=== PATIENT | female | born 1985 | race Caucasian/White ===

== ENCOUNTER 2019-07-01 06:30 | Inpatient (IN) | payer BC, SELFPAY ==
[2019-07-01] VITALS (85 sets, daily range): BP systolic 80–138; BP diastolic 43–110; PULSE 60–158; RESP 16; TEMP 36.3–36.9; O2SAT 81–100; BMI 27.3
--- NOTE | 2019-07-01 07:12 | LDADM ---
This patient, Spring Carbone, was admitted to Labor/Delivery/Recovery 104 on 07/01/19 at 06:30. Plans for labor, pain management and were discussed with patient. Patient/family oriented to hospital policies and general routines including ID bracelet, bed and alarms, visiting hours, pain management, procedures, bathroom and other care routines, personal items, smoking policy, room service/diet and guest tray routines, infant security routines, and visiting hours. Patient/Family are encouraged to report perceived risks to care and to ask questions if they do not understand what they are told or what they should do. See OBIX for further documentation.
[2019-07-01 07:13] LABS: Basophils Percent Auto 0.2 % (0.2-1.2); Eosinophils Absolute Auto 0.1 K/mm3 (0-0.3); Eosinophils Percent Auto 0.4 % (0-4.4); Hemoglobin 13.2 g/dL (12.0-15.0); Immature Granulocyte Absolute 0.07 K/mm3 (0.00-0.031); Immature Granulocyte Percent A 0.6 % (0-0.5); Lymphocytes Percent Auto 24.4 % (18.3-44.2); Mean Corpuscular HGB Conc 33.8 g/dl (32-36); Mean Corpuscular Hemoglobin 30.3 pg (26-34); Mean Corpuscular Volume 89.7 fl (80-100); Mean Platelet Volume 10.5 fl (7.4-10.4); Monocytes Absolute Auto 0.8 K/mm3 (0.1-0.6); Monocytes Percent Auto 6.1 % (2.6-8.5); Neutrophils Absolute Auto 8.4 K/mm3 (1.3-6.7); Neutrophils Percent Auto 68.3 % (45.5-73.1); Platelet Count Result 196 k/mm3 (150-375); Red Blood Count 4.35 M/mm3 (4.2-5.4); Red Cell Distribution Width 14.5 % (11.5-14.5); White Blood Count 12.3 K/mm3 (4.5-10.0)
--- NOTE | 2019-07-01 08:41 | WPDOBADMIT ---
Obstetrics - Admit Note Admission Note: 34y/o @ 41w4d here for induction of labor. Pt would like to start with AROM only. VSS and afebrile Contractions occasional FHR category 1 Cervix 3/50/-2 AROM small amount of clear odorless fluid Anticipate record reviewed. No pertinent additions to the history and/or any subsequent changes in the physical findings that are not consistent with the expected course of the were found. Additions to the history and/or subsequent changes in the physical findings follow. None.
[2019-07-01] MEDS: LACTATED RINGERS 1,000 ML 125 ML IV CONT ×2 (13:56→14:50)
--- NOTE | 2019-07-01 14:44 | WPDANESEPP ---
Anes - Eval Pre Procedure Procedure: labor pain management Date/Time: 07/01/19 14:44 Surgeon: Dr. Romero Preop Diagnosis: Pain during labor Pre Op Diagnosis: Induction of Labor Patient Data Age: 34 Gender: F Height: 5 ft 6 in Weight: 77 kg Last Vital Signs Temp 97.3 F L 07/01/19 13:23 Pulse 63 07/01/19 14:31 BP 111/69 07/01/19 14:31 Allergies Allergy/AdvReac Type Severity Reaction Status Date / Time No Known Allergies Allergy Verified 05/29/19 12:25 Home Medications Medication Instructions Recorded Confirmed Type PNV cmb#95-ferrous fumarate-FA 1 tablet PO DAILY 05/29/19 07/01/19 History [] Laboratory Tests 07/01/19 07/01/19 07/01/19 06:57 06:57 06:57 WBC 12.3 K/mm3 H K/mm3 (4.5-10.0) RBC 4.35 M/mm3 M/mm3 (4.2-5.4) Hgb 13.2 g/dL g/dL (12.0-15.0) Hct 39.0 % % (37.0-47.0) MCV 89.7 fl fl (80-100) MCH 30.3 pg pg (26-34) MCHC 33.8 g/dl g/dl (32-36) RDW 14.5 % % (11.5-14.5) Plt Count 196 k/mm3 k/mm3 (150-375) MPV 10.5 fl H fl (7.4-10.4) Immature Gran % (Auto) 0.6 % H % (0-0.5) Neut % (Auto) 68.3 % % (45.5-73.1) Lymph % (Auto) 24.4 % % (18.3-44.2) [place] % (Auto) 6.1 % % (2.6-8.5) Eos % (Auto) 0.4 % % (0-4.4) Baso % (Auto) 0.2 % % (0.2-1.2) Lymph # (Auto) 3.00 K/mm3 K/mm3 (0.9-3.2) [place] # (Auto) 0.8 K/mm3 H K/mm3 (0.1-0.6) Eos # (Auto) 0.1 K/mm3 K/mm3 (0-0.3) Baso # (Auto) 0.0 K/mm3 K/mm3 (0.0-0.1) Abs Immat Gran (auto) 0.07 K/mm3 H K/mm3 (0.00-0.031) Absolute Neuts (auto) 8.4 K/mm3 H K/mm3 (1.3-6.7) Absolute Nucleated RBC 0.0 K/mm3 K/mm3 (0.0-0.012) Nucleated RBC % 0.0 % % (0.0-0.2) RPR Pending Blood Type O Positive Antibody Screen Negative Patient hx anesthesia problems: none Family hx anesthesia problems: none PMFSH Past Medical History Medical History (Updated 07/01/19 @ 14:46 by Deedee Bermudez CRNA) Migraines Surgical History Surgical History (Updated 07/01/19 @ 14:46 by Deedee Bermudez CRNA) History of appendectomy Hx of tonsillectomy Family History Family History (Updated 05/29/19 @ 12:37 by Jillian Nino RN) Other No pertinent family history Social History Social History Smoking status: Never smoker Substance use: never Gender identity (if verbalized by the patient): Female Spiritual care concerns: No Exam Day of Procedure 07/01/19 14:44
--- NOTE | 2019-07-01 16:49 | PM.OBPRVD ---
OB - Delivery Note Procedure Delivery date: 07/01/19 Intrapartal events: None Induction method: AROM Delivery monitor: external FHT and external uterine Route of delivery: Episiotomy description: None Laceration description: None Estimated blood loss (mL): 82 Anesthesia type: Epidural [place] Baby Date of : 07/01/19 Time of : 16:35 Weeks of gestation at delivery: 41 gender: Male Weight (pounds): 8 Weight (ounces): 12 presentation: vertex position: Left Occiput Anterior Placenta delivery description: Spontaneous cord vessel description: 3 Vessels score one minute: 8 score five minutes: 9 Narrative: Mother and baby in stable condition. Cord gasses collected and handed off to nursery staff. Arterial .5cc Venous1.5cc.
[2019-07-01] MEDS: OXYTOCIN 30 UNITS/NS 500 ML 30 UNITS/500 ML BAG 125 UNITS IV CONT (17:28)
[2019-07-01] MEDS: WITCH HAZEL 40 PADS 1 PAD TOPICAL (18:20)
[2019-07-01] MEDS: IBUPROFEN 600 MG TABLET PO (18:20)
[2019-07-01] MEDS: BENZOCAINE 20% AER SPR (*SP) 56 GM CAN 1 SPRAY TOPICAL (18:20)
--- NOTE | 2019-07-01 18:55 | PC.NURSE ---
Patient transferred to post room #291 via wheelchair. Support person present. Oriented to unit, room, information board, rooming in, admission packet and security measures. Patient verbalizes understanding.
[2019-07-02 04:51] LABS: Hemoglobin 11.7 g/dL (12.0-15.0)
[2019-07-02 08:00] VITALS: BP 108/68; PULSE 64; RESP 18; TEMP 36.2
[2019-07-02] MEDS: MULTIVIT/MIN/PREN/FOL AC/IRON TABLET 1 TAB PO (08:02)
[2019-07-02] MEDS: DOCUSATE SODIUM 100 MG CAPSULE PO ×2 (08:03→17:13)
[2019-07-02] MEDS: LANOLIN (LANSINOH) 7.5 GM CREAM 1 APPLIC TOPICAL (08:03)
--- NOTE | 2019-07-02 09:33 | WPDANLDPN2 ---
Anes-Prog Note L&D Date/Time: 07/02/19 09:33 Comfortable throughout: labor and delivery Neuraxial method: epidural Epidural/Spinal procedure site: clean & non-tender Neuro status: Neuro function grossly intact. Cardiovascular status: normal Respiratory status: normal Airway patency: baseline Mental status: baseline Post-Op hydration status: normal Vital Signs: Last Vital Signs Temp 97.3 F L 07/01/19 19:00 Pulse 73 07/01/19 19:00 Resp 16 07/01/19 19:00 BP 119/68 07/01/19 19:00 Pulse Ox 100 07/01/19 19:00 I/O: Intake & Output 07/01/19 07/02/19 07/02/19 23:59 07:59 15:59 Intake Total 1500 Output Total 106 Balance 1394 Patient feedback: Patient satisfied with anesthetic care.
--- NOTE | 2019-07-02 11:55 | PM.OBPNVD ---
OB - PN: Subj Subjective Date/time seen: 07/02/19 11:55 Patient comments: no complaints baby status: doing well [place] feeding status: exclusively breast feeding OB - PN: Obj Data Labs CBC & Chem 7: 07/02/19 04:14 Labs: Laboratory Results - last 24 hr 07/02/19 04:14 Hgb 11.7 L Hct 35.0 L OB - PN A/P Plan day: 1 Plan: routine care Time Spent With Patient Time: Total time spent is greater than 50% in coordination of care (as documented) at patient's floor/unit and/or counseling patient: Time with patient: less than 15 minutes Review of Systems Review of Systems: All systems reviewed & are unremarkable except as noted in HPI and below Exam Const: General: comfortable Chest: Breast/axilla inspection: normal inspection of the breasts Psych: Appearance: grossly normal Affect: normal affect Attitude: cooperative Judgement: Good judgement present (Psych)
[2019-07-02] MEDS: WITCH HAZEL 40 PADS 1 PAD TOPICAL (17:12)
[2019-07-02 19:20] VITALS: BP 110/68; PULSE 72; RESP 18; TEMP 36.2; O2SAT 100
[2019-07-03 07:15] VITALS: BP 102/65; PULSE 72; RESP 16; TEMP 36.7; O2SAT 100
[2019-07-03 08:03] LABS: Rapid Plasma Reagin Non-Reactive (NonReactive)
--- NOTE | 2019-07-03 08:23 | P.PNOB_ITS ---
OB - PN: Subj Subjective Date/time seen: 07/03/19 08:23 Patient comments: no complaints baby status: doing well OB - PN: Obj Data Labs CBC & Chem 7: 07/02/19 04:14 Labs: Laboratory Results - last 24 hr 07/01/19 06:57 RPR Non-reactive OB - PN A/P Plan day: 2 Plan: routine care, discharge home and other Comments: Follow up in 4 weeks. Time Spent With Patient Time: Total time spent is greater than 50% in coordination of care (as documented) at patient's floor/unit and/or counseling patient: Time with patient: less than 15 minutes Review of Systems 2 Review of Systems: All systems reviewed & are unremarkable except as noted in HPI and below Exam Narrative: Exam Narrative: Fundus firm and vaginal flow controlled Const: General: comfortable Chest: Breast/axilla inspection: normal inspection of the breasts Psych: Appearance: grossly normal Affect: normal affect Attitude: cooperative Judgement: Good judgement present (Psych)
--- NOTE | 2019-07-03 08:25 | P.DS_ITS ---
DS: Diagnosis Discharge Diagnosis (1) Vaginal delivery: Code(s): O80 - Encounter for full-term uncomplicated delivery Status: Acute OB - DS: Summary OB Procedures : None OB Procedures Intrapartum: Spontaneous Vag Delivery OB Procedures: : None Time Spent with Patient Time attestation: Total time spent providing and/or coordinating discharge services: DS: Data Data Completed and Pending Pending studies at discharge: Pending at discharge 07/01/19 16:42 Surgical [PTH] Routine Labs on day of discharge: Labs from last 24 hours 07/01/19 06:57 RPR Non-reactive Discharge Plan Discharge Attending physician on discharge: Saloni Huang Discharging Clinician: Saloni Huang Patient Disposition: Home, Self-Care Activity: pelvic rest Diet: as tolerated Patient Instructions: Antibiotic Form Stand Alone Forms: General Discharge Information Follow-up/Referrals: Saloni Huang, CNM [Certified Nurse [employer] Loan Specialist] - Discharge Medications: Continued PNV cmb#95-ferrous fumarate-FA [] 28 mg iron- 800 mcg Tablet 1 tablet PO DAILY RF: 0 Date of admission: 07/01/19 06:30 Primary Care Provider: UNKNOWN,DOCTOR Admitting Provider: Galileo Romero Attending physician on admission: Galileo Romero
[2019-07-03] MEDS: MULTIVIT/MIN/PREN/FOL AC/IRON TABLET 1 TAB PO (09:20)
--- NOTE | 2019-07-03 09:50 | PC.NURSE ---
Mother is able to independently latch infant with appropriate positioning/alignment. She denies any nipple discomfort, is feeding as required and waking to feed if needed. has had 8 effective feedings in the past 24 hours, and is currently meeting outcomes for weight, output, jaundice and feeding frequencies. Mother states she feels confident to continue effective at home. Reviewed transition to breast milk, signs of adequate intake, and engorgement/relief. Instructed to call ICP if intake/output less than required. Reviewed regular medications mother is taking. Information provided per Monique. Reviewed community resources on the [facility] website and in the Mom/Baby guide. Information on outpatient services provided. Mother has no further questions at this time.
[2019-07-05 08:23] VITALS: BP 113/86; PULSE 81; RESP 16; TEMP 36.9; O2SAT 98
== END 2019-07-03 11:32 | disposition home or self-care (01) | DRG 807 ==
LOC: ANHLDR 06:32 → ANHOB2 18:59
PROVIDERS: Advanced Practice Midwife; Admitting Provider Obstetrics & Gynecology; Visit Provider Obstetrics & Gynecology
DX: O69.89X0 Labor and delivery complicated by other cord complications, not applicable or unspecified (principal); Z37.0 Single live birth; Z3A.41 41 weeks gestation of pregnancy; Z23 Encounter for immunization
CPT/HCPCS: 36415; 85014; 85018; 85025; 86592; 86850; 86900; 86901; 88307; A9270; J2590; J2795; J7120

== ENCOUNTER 2024-04-25 16:12 | Outpatient (CLI) | payer OTHER, SELFPAY ==
--- NOTE | ~2024-04-25 | MM_ITS ---
EXAMINATION: MM screening mack BI w miguel HISTORY: Screening TECHNIQUE: Craniocaudal and mediolateral oblique 3-D tomosynthesis images were obtained and synthetic 2-D images were generated. CAD analysis was submitted and interpreted. COMPARISON: No prior mammogram is available for comparison at this institution. BREAST PARENCHYMAL COMPOSITION: Dense: The breasts are heterogeneously dense, which may obscure small masses FINDINGS: There is a focal subareolar asymmetry slightly above the nipple line on the MLO view anteri carla. There is no evidence for malignancy in the left breast. IMPRESSION: 1. Focal right breast asymmetry. 2. Additional mammographic views and possible breast ultrasound are recommended. BI-RADS Category 0: Incomplete: Needs additional imaging evaluation. Reviewed, dictated and finalized at location A. [facility] IMPRESSION: 1. Focal right breast asymmetry. 2. Additional mammographic views and possible breast ultrasound are recommended . BI-RADS Category 0: Incomplete: Needs additional imaging evaluation.
--- OUTSIDE RECORDS SUMMARY | 2024-04-25 16:15 | XMS_ITS | Data Portability ---
Author Organization [facility] [place] Address [address] [place] [address] [place] [address] Care Team Providers Care Daylight Driller Name Role Phone [facility] Primary Care Provi olayinka Assessment Encounter Date Assessment Date Assessment LastModified by Organization Details LastModified Time 03/19/2022 03/19/2022 Annual gynecological exam performed. Patient will come back in a year unless there are new symptoms. [email or web address] Not available 03/19/2022 09:35:58 03/09/2024 03/09/2024 Annual gynecological exam performed. Patient will come back in a year unless there are new symptoms. [email or web address] Not available 03/09/2024 11:10:30 Plan of Treatment Reminders Order Date Submit Date Provider Last Modified By Organization Details Last Modified Time Details Appointments None recorded. Lab None recorded. Referral None recorded. Procedures None recorded. Surgeries None recorded. Imaging MAMMO, screening, digital, bilateral 2023 024 [facility], [address], [place], [address], 05:35:20 Medication Orders None recorded. Patient TargetsNo targets recorded. Patient InstructionsNo instructions recorded. Reason for Referral None Reported. Results Created Date Observation Date Name Description Value Unit Range Abnormal Flag Note LastModifiedBy Organization Detail LastModifiedTime 12/18/19 20 12/19/2019 pap, LB Pap test thin prep Negati ve for Intrae pithel ial Lesion or Malign manuel normal ACCES ANSELMO #: [id number] [facility] e: Cervi akash/E ndoce rvica l LMP: 019 Date Taken : 12/17 Speci men Type: ThinP rep Vial Date Repor janell: 2019 Clini akash Data: Cytot ech: Nicolasa GarciaVicente Tidwelle r, CT( CP) Date Repor janell: 2019 Speci men Adequ acy: Satis facto ry for evalu ation Endoc ervic al/tr ansfo rmati on zone compo nent prese nt Gener al Categ oriza tion: NEGAT MANOLO FOR INTRA EPITH ELIAL DOUG N OR MALIG SB Mendez N A A S S A Y S R E P O R T TEST NAME RESUL TS ----- ---- ----- -- HPV High Risk Belkis montes (TMA) ThinP rep Vial The human papil lomav irus (HPV) High Risk Belkis montes is an FDA-a pprov ed in-vi tro ampli fied nucle ic acid test for the quali tativ e detec tion of E6/E7 viral mRNA. Resul ts shoul d be corre lated with paticarolina nt prese ntati on, histo ry, cervi akash cytol ogy and other clini akash and labor atory findi ngs. See https ://Ausra/s ites/ defbecky lt/fi les/2 018-0 3/AW- 59936 _002_ 01.pd f for [facility] er ericr janelle montes. Test perfo rmed by [facility], d/b/a [facility], [address], [place] [address] , Jomar Sevilla ra, DO, Labor atory Dire tor. HPV High Risk *HPV NOT DETEC JANELL (TYPE S 16, 18, 31, 33, 35, 39, 45, 51, 52, 56, 58, 59, 66, 68) *HPV: The human papil lomav irus (HPV) High Risk Belkis montes is an FDA-a pprov ed in-vi tro ampli fied nucle ic acid test for the quali tativ e detec tion of E6/E7 viral mRNA. Resul ts shoul d be corre lated with patie nt prese ntati on, histo ry, cervi akash cytol ogy and other clini akash and labor atory findi ngs. See https ://Ausra/s lexuses/ manoj lt/fi les/2 018-0 3/AW- 98883 _002_ 01.pd f for furth er infor janelle n. Test perfo rmed by [facility], d/b/a [facility], [address], [place] [address] , Jomar Sevilla ra, DO, Labor atory Direc tor. End of t Techn ical servi bulmaro provi ded by [facility], d/b/a [facility], [address] [place] [address] Alexis Grossman MD, [facility] ator Dire tor. Case revie wed and diagn osis rende red at [facility], d/b/a [facility], [address] [place] [address] Alexis Grossman MD, [facility]. CONFI DENTI AL Not Available [facility] ([facility]) [address], [place], [address], 12/19/2019 16:05:05 12/18/19 20 12/19/2019 HPV DNA, high- risk HPV high risk NOT DETECT ED normal Not Available [facility] ([facility]) [address], [place], [address], 12/19/2019 16:05:06 03/19/20 22 03/19/2022 IMAGE GUIDE D PAP AND HPV REGAR DLESS image guided Pap, HPV regardless of Pap result SEE RESULT S BELOW CASE REPOR T: Cytol ogy Gynec ologi akash Repor t Case: [id number] Autho rosamaria hinojosa Provi olayinka: Karin Vanegas NP Colle cted: 03/19 1122 Order ing Locat ion: [place] [facility] Recei ronni: 03/20 0852 First Scree n: Maria Del Rosario Link ret, CT Speci men: Scree jannette Pap - Image d, Cervi x STATE MENT OF ADEQU ACY: Satis facto ry for evalu ation Trans forma tion zone compo nent prese nt FINAL DIAGN OSIS: Negat manolo for Intra epith elial Doug n or Alysa buchanan (NIL) . Elect anastasia shahlamiller jorge d by Maria Del Rosario Link ret, CT on 03/24 at 2:35 PM ----- ----- ----- ----- ----- ----- ----- ----- ----- ----- ----- ----- ----- ----- ----- ----- ----- ---- HPV RESUL TS: HPV mRNA E6/E7 : No HPV mRNA Detec janell NOTE: This high risk HPV mRNA assay detec ts fourt een high- risk HPV types (16, 18, 31, 33, 35, 39, 45, 51, 52, 56, 58, 59, 66, 68) witho ut diffe renti ation . COMME NT: Note: This speci men was revie wed by a Cytot echno logis t and/o r Patho logis t (as indic ated in this repor t) after evalu ation using the Thinp rep Imagi ng Syste m. CLINI AKASH INFOR MATIO N: Menst rual Statu s: LMP (if appli cable ): Clini akash Histo ry/Pr eviou s Pap: Type of Neopl maria luisa (if appli cable ): Signi fican t Clini akash Findi ngs: Other Histo ry: Hormo fredis (if appli cable ): PAP EDUCA LORENZO L NOTE: The Pap Test is a scree jannette test with an inher ent false negat manolo rate. Liqui d-bas ed sampl ing may decre ase, but will not elimi alan, false negat manolo resul ts. A negat manolo resul t does not precl ude the prese nce and/o r devel opmen t of disea se, since the prese nce of abnor mal cells in the sampl e depen ds on the locat ion of the lesio n and sampl ing techn ique. Malia nued regul ar scree jannette is the best metho d of cance r preve ntion . If repor janell cytol ogic findi ng do not corre late with physi akash and/o r histo rical findi ngs, furth er inves tigat ion is recom og d, as clini liat hand nted. Not Available [facility] (Lab) [address], [place], [address], 03/24/2022 15:37:37 Result Notes None recorded. Problems Name Problem SNOMED Code Status Onset Date Resolution Date Notes Provider Name and Address Organization Details Recorded Time Normal in multigrav mian [id number] 4106 Active 2019 Encounter for suprvsn of normal , third trimester ;Practice ID: 0001 Not Available [facility] 0 17:05:10 Developme ntal disorder Active 2019 Malformat ion of placenta, unspecifi ed, third trimester ;Practice ID: 0001 Not Available [facility] 0 17:05:10 Gestation period, 35 weeks 46967440 Active 2019 35 weeks gestation of ;Practice ID: 0001 Not Available [facility] 0 17:05:[address] Concept Active 2019 Maternal care for oth problems, third trimester , unsp;Prac yolanda ID: 0001 Not Available [facility] 0 17:05:11 Gestation period, 38 weeks 37857378 Active 2019 38 weeks gestation of ;Practice ID: 0001 Not Available [facility] 0 17:05:11 Placenta circumval francisco 5494609 Active 2019 Circumval late placenta, third trimester ;Practice ID: 0001 Not Available [facility] 0 17:05:11 Gestation period, 39 weeks 75514822 Active 2019 39 weeks gestation of ;Practice ID: 0001 Not Available [facility] 0 17:05:11 Term delivered 77426756 Active 2019 Encounter for full-term uncomplic ated delivery; Practice ID: 0001 Not Available [facility] 0 17:05:11 Single live 533155836 Active 2019 Single live ;Pra ctice ID: 0001 Not Available [facility] 0 17:05:11 Gestation period, 41 weeks 32145777 Active 2019 41 weeks gestation of ;Practice ID: 0001 Not Available [facility] 0 17:05:[address] Concept Active 2015 Encntr for general adult medical exam w/o abnormal findings; Recorded Elsewhere : No Locati on: [facility] So urce: EHR Chron ic: N Practic e ID: 0001 Bill able Time: 10:30:00 AM Not Available [facility] 0 17:05:[address] Concept Active 2018 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) w/o abn findings; Recorded Elsewhere : No Locati on: [facility] So urce: EHR Chron ic: N Practic e ID: 0001 Bill able Time: 05:00:00 PM Not Available [facility] 0 17:05:11 Post-term 01259716 Active 2015 Post-term ;Recorded Elsewhere : No Locati on: [facility] So urce: EHR Chron ic: N Practic e ID: 0001 Bill able Time: 01:21:00 PM Not Available [facility] 0 17:05:12 Gestation less than 9 weeks 114208253 Active 2017 Less than 8 weeks gestation of ;Recorded Elsewhere : No Locati on: [facility] So urce: EHR Chron ic: N Practic e ID: 0001 Bill able Time: 08:15:00 AM Not Available [facility] 0 17:05:12 Gestation period, 28 weeks 49407940 Active 2019 28 weeks gestation of ;Recorded Elsewhere : No Locati on: [facility] So urce: EHR Chron ic: N Practic e ID: 0001 Bill able Time: 09:45:00 AM Not Available [facility] 0 17:05:12 Lochia finding Active 2015 Encounter for routine postpartu m follow-up ;Recorded Elsewhere : No Locati on: [facility] So urce: EHR Chron ic: N Practic e ID: 0001 Bill able Time: 10:00:00 AM Not Available [facility] 0 17:05:12 Gestation period, 23 weeks 53928223 Active 2018 23 weeks gestation of ;Recorded Elsewhere : No Locati on: [facility] So urce: EHR Chron ic: N Practic e ID: 0001 Bill able Time: 12:30:00 PM Not Available [facility] 0 17:05:12 screening Active 2018 Encounter for other specified screening ;Recorded Elsewhere : No Locati on: [facility] So urce: EHR Chron ic: N Practic e ID: 0001 Bill able Time: 04:30:00 PM Not Available [facility] 0 17:05:12 screening for malformat ion Active 2018 Encounter for screening for malformat ions;Ahsan rded Elsewhere : No Locati on: [facility] So urce: EHR Chron ic: N Practic e ID: 0001 Bill able Time: 04:00:00 PM Not Available [facility] 0 17:05:13 Threatene d miscarria 68498028 Active 2017 Threatene d ; Recorded Elsewhere : No Locati on: [facility] So urce: EHR Chron ic: N Practic e ID: 0001 Bill able Time: 08:15:00 AM Not Available [facility] 0 17:05:14 Gestation period, 40 weeks 86782036 Active 2015 40 weeks gestation of ;Recorded Elsewhere : No Locati on: [facility] So urce: EHR Chron ic: N Practic e ID: 0001 Bill able Time: 01:21:00 PM Not Available [facility] 0 17:05:14 detection examinati on Active 2014 Encounter for test, result positive; Recorded Elsewhere : No Locati on: [facility] So urce: EHR Chron ic: N Practic e ID: 0001 Bill able Time: 11:00:00 AM Not Available [facility] 0 17:05:14 Uterine size for dates discrepan cy Active 2018 Uterine size-date discrepan cy, first trimester ;Recorded Elsewhere : No Locati on: [facility] So urce: EHR Chron ic: N Practic e ID: 0001 Bill able Time: 05:15:00 PM Not Available [facility] 0 17:05:14 Gestation period, 8 weeks 37965668 Active 2018 8 weeks gestation of ;Recorded Elsewhere : No Locati on: [facility] So urce: EHR Chron ic: N Practic e ID: 0001 Bill able Time: 05:15:00 PM Not Available [facility] 0 17:05:15 Missed miscarria ge 77325949 Active 2017 Missed ; Recorded Elsewhere : No Locati on: [facility] So urce: EHR Chron ic: N Practic e ID: 0001 Bill able Time: 01:00:00 PM Not Available [facility] 0 17:05:[address] Concept Active 2018 Maternal care for oth abnormali ty and damage, unsp;Ahsan rded Elsewhere : No Locati on: [facility] So urce: EHR Chron ic: N Practic e ID: 0001 Bill able Time: 12:30:00 PM Not Available [facility] 0 17:05:16 Miscarria ge without complicat ion 46113649 Active 2017 Incomplet e spontaneo us without complicat ion;Recor ded Elsewhere : No Locati on: [facility] So urce: EHR Chron ic: N Practic e ID: 0001 Bill able Time: 01:30:00 PM Not Available [facility] 0 17:05:16 Gestation period, 31 weeks 92473310 Active 2019 31 weeks gestation of ;Recorded Elsewhere : No Locati on: [facility] So urce: EHR Chron ic: N Practic e ID: 0001 Bill able Time: 04:45:00 PM Not Available [facility] 0 17:05:16 Notes:Encounter for antenata l screening of mother Recorded Elsewhere: No Location: [facility] Source: EHR Chronic: N Practice ID: 0001 Billable Time: 04:45:00 PM Encounter for screening of mother Practice ID: 0001 Problem Notes None recorded. Procedures Surgical History Date Name Laterality Status Provider Name and Address Organization Details Recorded Time 03/19/20 22 Date of Last Pap Smear completed Carmen Cabrales [facility] 03/09/2024 11:14:02 LEEP completed [facility] 08/09/2019 12:44:54 Appendectomy completed [facility] 08/09/2019 12:45:03 Tonsillectomy completed [facility] 08/09/2019 12:45:10 Imaging Results None recorded. Procedure Notes None recorded. Medical Equipment None Reported. Allergies No known drug allergies Medications Name Sig Start Date Stop Date Status Note LastModified by Organization Details LastModified Time Prometriu m 100 mg capsule Take 2 capsules every day by oral route for 12 days. 03/09 completed Not Available Not Available Not Available Vitamin D2 1,250 mcg (50,000 unit) capsule take 1 capsule by oral route every week 08/29 completed Prescrib ed Elsewher e: No Locat ion: [facility] M odify By: jerry ellsworth DateTime : 04/02/19 16 08:14:28 AM Not Available Not Available Not Available cefdinir 300 mg capsule TAKE 1 CAPSULE BY MOUTH TWICE A DAY WITH FOOD 03/09 completed Not Available Not Available Not Available progester one 100 mg vaginal supposito ry Insert by vaginal route. 03/09 completed Not Available Not Available Not Available Prometriu m active Not Available Not Available Not Available 28 mg iron-800 mcg tablet 10/26 completed Prescrib ed Elsewher e: Yes Loca tion: [facility] M odify By: dwayne ellsworth DateTime : 08/30/19 16 10:30:00 AM Not Available Not Available Not Available Fioricet 50 mg-300 mg-40 mg capsule take 1 - 2 capsule by oral route every 4 hours as needed not to exceed 6 capsules per 24hrs 03/19 completed Prescrib rick Jackson e: No Locat ion: [facility] M jonathan By: [email or web address] Encounte r DateTime : 11/08/19 09:54:56 PM Not Available Not Available Not Available Finacea 15 % topical foam 12/17 completed Not Available Not Available Not Available Flucelvax Quad (PF) 60 mcg (15 mcg x 4)/0.5 mL IM syringe 12/17 completed Not Available Not Available Not Available Vitals Date Recorded Body height Body mass index (BMI) Body weight Systolic blood pressure Diastolic blood pressure Provider Name and Address Organization Details Last Updated DateTime 03/19/2022 167.64 cm 20.9 kg/m2 63392.57 g 109 mm[Hg] 72 mm[Hg] Teresa Boyd [facility] 2 09:36:26 Date Recorded Body height Body mass index (BMI) Body weight Systolic blood pressure Diastolic blood pressure Provider Name and Address Organization Details Last Updated DateTime 12/18/2019 167.64 cm 21.3 kg/m2 08037.19 g 105 mm[Hg] 71 mm[Hg] [facility] 0 16:20:52 Date Recorded Body height Body mass index (BMI) Body weight Systolic blood pressure Diastolic blood pressure Provider Name and Address Organization Details Last Updated DateTime 03/09/2024 167.64 cm 22.2 kg/m2 31293.59 g 113 mm[Hg] 76 mm[Hg] Carmen Cabrales [facility] 4 11:12:05 Date Recorded Body weight Body mass index (BMI) Body height Systolic blood pressure Diastolic blood pressure Provider Name and Address Organization Details Last Updated DateTime 08/09/2019 09151.08 g 23.7 kg/m2 167.64 cm 110 mm[Hg] 72 mm[Hg] [facility] 0 12:42:36 Social History Question Answer Notes LastModified by Organizat ion Details LastModified Time Tobacco Smoking Status Never Smoker Teresa Deb [facility] 03/19/2022 09:40:13 Do You Have An Advance Directive? No [email or web address] Information n ot available 03/09/2024 What Is Your Level Of Alcohol Consumption? Occasional Information not available 03/19/2022 How Many Years Have You Consumed Alcohol? 17 Information not available 03/19/2022 Are You Blind Or Do You Have Difficulty Seeing? No Information n ot available 03/19/2022 What Is Your Level Of Caffeine Consumption? Moderate Information not available 03/19/2022 How Much Tobacco Do You Chew? None Information not available 03/19/2022 In The 14 Days Before Symptom Onset, Have You Had Close Contact With A Laboratory-confirm ed COVID-19 While That Case Was Ill? No Information n ot available 03/19/2022 In The 14 Days Before Symptom Onset, Have You Had Close Contact With A Person Who Is Under Investigation For COVID-19 While That Person Was Ill? No Information not available 03/19/2022 Have You Been To An Area Known To Be High Risk For COVID-19? No Information not available 03/19/2022 Are You Deaf Or Do You Have Serious Difficulty Hearing? No Information not available 03/19/2022 What Type Of Diet Are You Following? REGULAR Information n ot available 03/19/2022 What Is The Highest Grade Or Level Of School You Have Completed Or The Highest Degree You Have Received? 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 No [email or web address] Information not available 03/09/2024 Do You Use Protection During Sex? No Information not available 03/19/2022 Do You Use Your Seat Belt Or Car Seat Routinely? Yes Information not available 03/19/2022 Do You Have Smoke And Carbon Monoxide Detectors In Your Home? Yes Information not available 03/19/2022 How Much Tobacco Do You Smoke? No Information not available 03/19/2022 Do You Feel Stressed (tense, Restless, Nervous, Or Anxious, Or Unable To Sleep At Night)? [id number] Information not available 03/19/2022 Do You Use Any Illicit Or Recreational Drugs? No Information not available 03/19/2022 Do You Use Sunscreen Routinely? Yes [email or web address] Information not available 03/09/2024 Have You Used IV Drugs? No Information not available 03/19/2022 Sex: Unknown Functional Status Question Answer Note LastModified by Organizat ion Details LastModified Time Do you have difficulty walking or climbing stairs? No Information not available 03/19/2022 Are you able to walk? YESWOREST Information not available 03/19/2022 Are you able to care for yourself? Yes Information not available 03/19/2022 Do you have difficulty dressing or bathing? No Information not available 03/19/2022 What is your exercise level? None Information not available 03/19/2022 Mental Status None recorded. Family History Relationship Description Onset Age of this Age Resolved Age Notes LastModified by Organization Details LastModified Time Father Blood coagulation disorder [email or web address] Not available 2019 12:44:40 Sister Blood coagulation disorder [email or web address] Not available 2019 12:44:40 Notes:Father: Coagulopathy S ister: Coagulopathy Medical History Condition Response Allergies (Food, seasonal, environmental ) N Other N Breast Cancer N Drug/Latex Allergies/Reactions N Blood Transfusion N Dermatologic Disorders N Lung Disease N Defects or Inherited Disease N Breast Problem N Gestational Diabetes N Hematologic disorders N Anesthesia Complications N History of STI N Deep Vein Thrombosis N Polycystic ovary syndrome N Anxiety Disorder N Autoimmune disease N Arthritis N Infertility N Polyps N Acid Reflux (GERD) N History of abnormal pap N Cancer N Stroke N Varicosities N Neurologic/Epilepsy N Endometriosis N High Cholesterol N Headaches N Fibromyalgia N Kidney Disease N Heart Problems N Kidney or Bladder Problems N Thyroid Problems N GI Problems N Eating Disorder N Anemia N Art (IVF or FET) N Psychiatric Illness N Ovarian Cancer N Diabetes N Pulmonary (TB, Asthma) N Hepatitis/Liver Disease N No Past Medical History N Eczema N Urinary Tract Infection N Abuse/Domestic Violence N Asthma N Trauma/Violence N Depression/ depression N Heart Disease N Pre-Eclampsia N Hypertension N Osteoporosis N Thrombophilias N Gynecological History Statement/Question Response Flow Moderate Date of LMP 02/16/2024 On BCP's at Conception? N N Was last menstrual period normal Y STIs/STDs N HPV Vaccine N Duration of Flow (days) 6 Current Control Method Partner Vas ectomy Age at First Child 27 Frequency of Cycle (Q days) 27 Sexually Active? Y Menses Monthly Y Age of first menstrual cycle 11 Date of Last Pap Smear 03/19/2022 Sexual Problems? N LMP Approximate Y Obstetrics History GPAL:G 4 P 0 0 1 3 Type Value Spontaneous 1 Living 3 Total 4 Past Encounters Encounter ID Performer Location Encounter Start Date Encounter Closed Date Diagnosis/Indication Diagnosis SNOMED-CT Code Diagnosis ICD10 Code Diagnosis Note [id number] Saloni Huagn [place] [address] [address] 08/09/2019 12:13:04 08/09/2019 12:57:46 state 27995343 Z39.2 Continue to watch for signs/symp toms of post depression . Return one year from last pap smear for a well woman exam. Due in November. Pt will call to schedule. Not interested in contracept ion. has vasectomy scheduled. Patient received above instructio ns, and questions have been answered. If you have any questions please call or respond to this email. Patient was made aware of the patient portal and may obtain a paper copy of today's plan if desired Saloni Huang [place] [address] [address] 12/18/2019 16:14:31 12/18/2019 16:31:26 Gynecologic examination [id number] Z01.419 Take Calcium with Vitamin D 1200mg daily if not receiving in daily diet. It is strongly advised to have an annual flu shot and up can obtain at most pharmacies . If you have not had a TDap shot in the last 10 years you should obtain one as well. Discussed with patient & provided with informatio n regarding Gardisil vaccine to prevent the 4 strains for HPV that cause cervical cancer if under age 26. Encourage safe sexual practices, to use condoms and limit partners if not already in a monogamous relationsh ip. Do monthly self breast exams. Have mammogram yearly or every other year depending on family history. BRCA testing is now available for patients with strong genetic history of female cancer. If interested contact the office. Engage in daily exercise of low impact aerobic exercise 45-60 minutes 4-5 times weekly. Avoid tobacco and illicit drugs as well as using moderation with alcohol intake less than 1-2 8 oz beverages daily. This lifestyle behavior pattern will lead to less health conditions and longer life span. If BMI greater than 25 weight watchers or dietary consult advised. Patient received above instructio ns, and questions have been answered. If you have any questions please call or respond to this email. Patient was made aware of the patient portal and may obtain a paper copy of today's plan if desired. [id number] PERLA Dacosta [place] [address] [address] 03/19/2022 09:12:42 03/19/2022 10:26:06 Gynecologic examination [id number] Z01.419 Take Calcium with Vitamin D 1200mg daily if not receiving in daily diet. It is strongly advised to have an annual flu shot and up can obtain at most pharmacies . If you have not had a TDap shot in the last 10 years you should obtain one as well. Discussed with patient & provided with informatio n regarding Gardisil vaccine to prevent the 4 strains for HPV that cause cervical cancer if under age 26. Encourage safe sexual practices, to use condoms and limit partners if not already in a monogamous relationsh ip. Do monthly self breast exams. Have mammogram yearly or every other year depending on family history. BRCA testing is now available for patients with strong genetic history of female cancer. If interested contact the office. Engage in daily exercise of low impact aerobic exercise 45-60 minutes 4-5 times weekly. Avoid tobacco and illicit drugs as well as using moderation with alcohol intake less than 1-2 8 oz beverages daily. This lifestyle behavior pattern will lead to less health conditions and longer life span. If BMI greater than 25 weight watchers or dietary consult advised. Patient received above instructio ns, and questions have been answered. If you have any questions please call or respond to this email. Patient was made aware of the patient portal and may obtain a paper copy of today's plan if desired. WWEBC - Partner with vasectomyH x of LEEP 20 years ago, all paps normal since per patientPap done todaySTI testing declinedNo family hx of breast, ovarian, or colon cancer per patientRTC in 1 year or sooner if needed [id number] PERLA Dacosta [place] [address] [address] 03/09/2024 10:38:39 03/09/2024 11:56:23 Gynecologic examination [id number] Z01.419 Z11.51 WWEBC - partner with vasectomyP ap - updated todaySTI screen - declinedMa mmogram - order givenColon cancer screening - n/aRoutine labs - PCPRTC in 1 yr or sooner if needed Suggested Calcium with Vitamin D daily. Patient advised to get an annual flu shot in the fall and she could obtain at local pharmacy. Also to obtain TDap vaccinatio n if you have not had one in the last 10 years. Recommend yearly mammograms . Encouraged monthly self breast exams. Encourage safe sexual practices, to use condoms and limit partners if not already in a monogamous relationsh ip. Engage in regular exercise. Avoid tobacco and illicit drugs. This lifestyle behavior pattern will lead to less health conditions and longer life span. If BMI greater than 25 dietary consult advised. All questions have been answered. Screening for malignant neoplasm of breast [id number] Z12.39 Health Concerns Section Related Observation LastModified by Organization Detai ls LastModified Time None Recorded Concern Status LastModified by Organization Details LastModified Time None Recorded Advance Directives Directive N: Payers Encounter Date Sequence Insurance Name Policy Number Policy Novoa Covered Member ID Novoa Member ID Guarantor Name 08/09/2019 1 [place] [id number] Glory Carbone [id number] 12/18/2019 1 [place] [id number] Glory Carbone [id number] 03/19/2022 1 [place] [id number] Glory Carbone [id number] 03/09/2024 1 [facility] [id number] Hugh Carbone [id number] Carbone Notes Date Note Type Note Provider Name and Address Organization Details Recorded Time 08/09/2019 text/html VisitReported bypatient.Notes:NSV D 4-4. Intact. Breast feeding. Bleeding has stopped. Saloni edward [facility] 08/09/2019 12:56:02 12/18/2019 text/html Annual GYNReport ed bypatient.Menstrual cycle:Normal menses Urinary symptoms:No hematuria; No incontinence Vulva:No genital lesion Vagina:Normal vaginal discharge Breast:No breast pain; No breast lump; No nipple discharge Current Contraception:Vasec emelia Sexual complaints:No sexual complaints; No pain during intercourse; Normal libido Menopausal Symptoms:No menopausal symptoms; Normal vaginal lubrication Psychological symptoms:No depression; No anxiety; No PMDD Saloni edward [facility] 12/18/2019 16:30:37 03/19/2022 text/html Annual GYNReport ed bypatient.Menstrual cycle:Normal menses Urinary symptoms:No hematuria; No incontinence Vulva:No genital lesion Vagina:Normal vaginal discharge Breast:No breast pain; No breast lump; No nipple discharge Current Contraception:Partn er had vasectomy Sexual complaints:No sexual complaints; No pain during intercourse; Normal libido Menopausal Symptoms:No menopausal symptoms; Normal vaginal lubrication Psychological symptoms:No depression; No anxiety; No PMDD Preventive measures:Encourage self breast examination; Encourage regular exercise; Encourage no tobacco use; Encourage regular mammograms starting age 40 PERLA Dacosta [address], [place], [address], [facility] 03/19/2022 10:07:15 03/09/2024 text/html Annual GYNReport ed bypatient.Menstrual cycle:Normal menses Urinary symptoms:No hematuria; No incontinence Vulva:No genital lesion Vagina:Normal vaginal discharge Breast:No breast pain; No breast lump; No nipple discharge Current Contraception:Satis fied with current contraception; Partner had vasectomy Sexual complaints:No sexual complaints; No pain during intercourse; Normal libido Menopausal Symptoms:No menopausal symptoms; Normal vaginal lubrication Psychological symptoms:No depression; No anxiety; No PMDD Preventive measures:Encourage self breast examination; Encourage regular exercise; Encourage no tobacco use; Encourage regular mammograms starting age 40Notes:39yo wweh/o LEEP 20yrs ago, normal paps sincelast pap 02/2022 : nilm, HPV (-)BC - partner with vasectomy on daily prometrium for hot flashes, managed by her PCP PELRA Dacosta [address], [place], [address], [facility] 03/09/2024 11:55:37 OBGyn Episode Ob Episode Information Episode Created Date Number of Fetuses Patient Bloodtype Patient rh Status Prepregnancy Weight lbs Domestic Partner Domestic Partner Phone Father Name [employer] Status 08/09/19 20 1 CLOSED Fetus Data First Name Last Name Admitted to NICU Weight (g) Sex Living Outcome Pediatric Complications Fetus ID Race Codes Race Delivery Type , Spontane ous 1413 Pj Calculation Initial Pj Date Initial Exam Date Initial Exam Provider Initial Ultrasound Date Last Menstrual Period Date Ultra Sound Weeks Gestation 0 Eighteen To Twenty Week Pj Update Ultra Sound Date Fundal Height At Umbil Quickening Date Ultra Sound Latest Weeks Gestation Final Pj Confirmed By Final Pj Confirmed Date Final Pj Date Ultra Sound Latest Days Gestation 0 0 Menstrual History Last Menstrual Date Menses Monthly On Bcp Conception Prior Menses Frequency Hcg Plus Date Menarche Onset Age Delivery Information Delivery Date Delivery Type Labor Anesthesia Weeks Gestation Incision Type Labor Labor Length Hrs Delivered By Post Complications Tubal Sterilization Discharge Date Comments 8 Discharge Information Feeding Method Contraceptive Method Maternal HG B and HCT Levels Ob Episode Information Episode Created Date Number of Fetuses Patient Bloodtype Patient rh Status Prepregnancy Weight lbs Domestic Partner Domestic Partner Phone Father Name [employer] Status 08/09/19 20 1 CLOSED Fetus Data First Name Last Name Admitted to NICU Weight (g) Sex Living Outcome Pediatric Complications Fetus ID Race Codes Race Delivery Type 3968.93 M Full Term 1412 Vaginal Delivery Pj Calculation Initial Pj Date Initial Exam Date Initial Exam Provider Initial Ultrasound Date Last Menstrual Period Date Ultra Sound Weeks Gestation 0 Eighteen To Twenty Week Pj Update Ultra Sound Date Fundal Height At Umbil Quickening Date Ultra Sound Latest Weeks Gestation Final Pj Confirmed By Final Pj Confirmed Date Final Pj Date Ultra Sound Latest Days Gestation 0 0 Menstrual History Last Menstrual Date Menses Monthly On Bcp Conception Prior Menses Frequency Hcg Plus Date Menarche Onset Age Delivery Information Delivery Date Delivery Type Labor Anesthesia Weeks Gestation Incision Type Labor Labor Length Hrs Delivered By Post Complications Tubal Sterilization Discharge Date Comments 0 41.4 marginal insertion Discharge Information Feeding Method Contraceptive Method Maternal HG B and HCT Levels Ob Episode Information Episode Created Date Number of Fetuses Patient Bloodtype Patient rh Status Prepregnancy Weight lbs Domestic Partner Domestic Partner Phone Father Name [employer] Status 08/09/19 20 1 CLOSED Fetus Data First Name Last Name Admitted to NICU Weight (g) Sex Living Outcome Pediatric Complications Fetus ID Race Codes Race Delivery Type 1414 Vaginal Delivery Pj Calculation Initial Pj Date Initial Exam Date Initial Exam Provider Initial Ultrasound Date Last Menstrual Period Date Ultra Sound Weeks Gestation 0 Eighteen To Twenty Week Pj Update Ultra Sound Date Fundal Height At Umbil Quickening Date Ultra Sound Latest Weeks Gestation Final Pj Confirmed By Final Pj Confirmed Date Final Pj Date Ultra Sound Latest Days Gestation 0 0 Menstrual History Last Menstrual Date Menses Monthly On Bcp Conception Prior Menses Frequency Hcg Plus Date Menarche Onset Age Delivery Information Delivery Date Delivery Type Labor Anesthesia Weeks Gestation Incision Type Labor Labor Length Hrs Delivered By Post Complications Tubal Sterilization Discharge Date Comments 6 Discharge Information Feeding Method Contraceptive Method Maternal HG B and HCT Levels Ob Episode Information Episode Created Date Number of Fetuses Patient Bloodtype Patient rh Status Prepregnancy Weight lbs Domestic Partner Domestic Partner Phone Father Name [employer] Status 08/09/19 20 1 CLOSED Fetus Data First Name Last Name Admitted to NICU Weight (g) Sex Living Outcome Pediatric Complications Fetus ID Race Codes Race Delivery Type 1415 Vaginal Delivery Pj Calculation Initial Pj Date Initial Exam Date Initial Exam Provider Initial Ultrasound Date Last Menstrual Period Date Ultra Sound Weeks Gestation 0 Eighteen To Twenty Week Pj Update Ultra Sound Date Fundal Height At Umbil Quickening Date Ultra Sound Latest Weeks Gestation Final Pj Confirmed By Final Pj Confirmed Date Final Pj Date Ultra Sound Latest Days Gestation 0 0 Menstrual History Last Menstrual Date Menses Monthly On Bcp Conception Prior Menses Frequency Hcg Plus Date Menarche Onset Age Delivery Information Delivery Date Delivery Type Labor Anesthesia Weeks Gestation Incision Type Labor Labor Length Hrs Delivered By Post Complications Tubal Sterilization Discharge Date Comments 3 Discharge Information Feeding Method Contraceptive Method Maternal HG B and HCT Levels
--- OUTSIDE RECORDS SUMMARY | 2024-04-25 16:15 | XMS_ITS | Clinical Summary ---
Author Organization [facility] Address [address] [place] [address] Care Team Providers Care Packing Machine Inspector Name Role Phone Dougie Romero MD Unavailable [phone] Primary Care Provider [phone] Allergies No known active allergies Medications progesterone (PROMETRIUM) 100 mg capsule Take 1 capsule (100 mg total) by mouth daily Active cefdinir (OMNICEF) 300 mg capsule Take 1 capsule (300 mg total) by mouth 2 (two) times a day Take with food. 14 capsule 08/10/2023 Active Active Problems Problem Noted Date Diagnosed Date Annual physical exam 05/15/2022 Overview (05/15/2022): Annual Well Visit: 05/15/22 Mammogram: n/a Pap: 02/2022 - will request records; [facility] DXA: n/a Colon Cancer: n/a Zoster: n/a Pneumococcal: n/a Tdap: 02/2020 Assessment & Plan (05/15/2022 1:02 PM [employer]): Annual Well Visit: 05/15/22 Mammogram: n/a Pap: 02/2022 - will request records; [facility] DXA: n/a Colon Cancer: n/a Zoster: n/a Pneumococcal: n/a Tdap: 02/2020 Recommend 30 minutes of moderate intensity exercise at least 5 days a week. Diet: good, healthy protein (eggs, nuts, peanut butter, chicken, fish, turkey, less pork/beef), lots of vegetables. Wellness labs ordered. Resolved Problems Problem Noted Date Diagnosed Date Resolved Date Advanced maternal age in multigravida 02/27/2019 05/15/2022 Overview (02/27/2019): S/p counseling on 02/27. Baseline age related risk is 1/178 at term for chromosomal abnormalities. 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 S/p counseling on 02/27. 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 Post- follow up with a pediatric urologist is recommended. Supervision of high-risk pre gnancy, unspecified trimester 02/20/2019 05/15/2022 Overview (02/20/2019): [] Co-management vs. [] Full [facility] Care; Referring Provider: Dougie Romero [phone] [x] Dating Criteria: LMP 09/05/18 US 11/08/18 with TRISTAN 06/20/19 [x] Labs: Rh [O+], Ab [negative], Rubella [immune], HIV [non-reactive], HepBSAg [non-reactive], RPR [non-reactive], GC/CT [negative/negative] [] Genetic Screening: [x] CBC/Hgb 13.1/40.2/plt 251 [] Early 1hr GTT (if indicated) [] UCx: [x] Pap: 10/31/18 NILM [] LD ASA (if indicated) starting at 12 weeks: [] EPDS [ ]; PNBHS referral (if indicated) 2nd Tri Labs: [] Anatomy ultrasound: [] CBC/1hr gtt at 24-28wks: [] Flu Shot (Nov-Feb): [] Tdap (27-36wks): [] Rhogam at 28 wks (if Rh neg): 3rd Tri Labs: [] CBC/HIV/RPR/T&S: [] GBS: [] GC/CT (if indicated): Counselling [] MOD: [] Place of delivery: [] MOC: [] Method of feeding: [] Shuttle Van Driver: [] PP Depression Discussed: Encounters Date Type Department Care Team Description 04/06/2024 3:30 PM [employer] Clinical Support [address] [phone] 04/04/2024 3:30 PM [employer] Clinical Support [address] [phone] Encounter for administration of vaccine (Primary Dx) 04/03/[address] [phone] Aleida Post PA Additional Services Or Orders from Last 3 Months Immunizations Name Administration Dates Next Due DTaP 10/27/1989, 6,1984,04/06,1984 Hep B Vaccine 09/11/1998,11/28/1996,10/25/1996 Influenza, Quadrivalent, Chantell l Culture-based MDCK, Preservative Free, Antibiotic Free, Intramuscular 05/02/2019 Influenza, Quadrivalent, Spl it, Preservative Free, Intramuscular 05/05/2022,01/05/2020 Influenza, Trivalent, IM (MDV) 03/03/2012 Influenza, Unspecified 12/27/2022(Deferr ed: Patient decision),12/27/2021 MMR 01/21/1990,04/17/1985 PPD TEST 04/04/2024,05/05/2023,05/15/2022 Polio, Unspecified 10/06/2013, 0,07/19/1985,05/11,1984,1984 Td, Unspecified 10/20/1994 Tdap 05/12/2019,04/11/2008 Varicella 05/05/2023 Surgical History Surgery Date Site/Laterality Comments APPENDECTOMY 03/29/1998 - 03/28/1999 TONSILECTOMY, ADENOIDECTOMY, BILATERAL MYRINGOTOMY AND TUBES 03/29/2001 - 03/28/2002 COLPOSCOPY 03/29/2004 - 03/28/2005 Medical History Medical History Date Comments Advanced maternal age in multigravida 02/27/2019 S/p counseling on 02/27. Baseline age related risk is at term for chromosomal abnormalities. 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 S/p counseling on 02/27. 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 Post-carolyne follow up with a pediatric urologist is recommended. Supervision of high-risk pre gnancy, unspecified trimester 02/20/2019 [] Co-management vs. [] Full [facility] Care; Referring Provider: Dougie Romero [phone] [x] Dating Criteria: LMP 09/05/18 US 11/08/18 with TRISTAN 06/20/19 [x] Labs: Rh [O+], Ab [negative], Rubella [immune], HIV [non-reactive], HepBSAg [non-reactive], RPR [non-reactive], GC/CT [negative/negative] [] Genetic Screening: [x] CBC/Hgb 13.1/40.2/plt 251 [] Early 1hr GTT (if indicated) [] UCx: [x] P Family History Medical History Relation Name Comments Atrial fibrillation Brother No Known Problems Father Multiple myeloma Maternal Grandfather No Known Problems Maternal Grandmother Factor V Leiden Mother Prostate cancer Paternal Grandfather Leukemia Paternal Grandmother Factor V Leiden Sister 1 Factor V Leiden Sister 2 Relation Name Status Comments Brother Alive Father Alive Maternal Grandfather Maternal Grandmother Mother Alive Paternal Grandfather Paternal Grandmother Sister 1 Alive Sister 2 Alive Social History Tobacco Use Types Packs/Day Years Used Date Smoking Tobacco: Never Smokeless Tobacco: Never Tobacco Cessation:Counseling Given: Not Answered AUDIT-C Answer Date Recorded Q1: How often do you have a drink containing alcohol? 4 or more times a week 08/10/2023 Q2: How many drinks containi ng alcohol do you have on a typical day when you are drinking? 1 or 2 Q3: How often do you have si x or more drinks on one occasion? Never 08/10/2023 PHQ-2 Answer Date Recorded PHQ-2 Total Score (If total score is 3 or more points, staff should administer the PHQ-9) 0 08/10/2023 Comments No Sex and Gender Information Value Date Recorded Sex Assigned at Not on file Legal Sex Female 1:40 PM [employer] Gender Identity Not on file Sexual Orientation Not on file Obstetrics History Para Term AB IAB SAB Ectopic Multiple Livin g Live Births 4 2 2 1 1 2 2 Date Outcome GA Total Labor Labor/2nd/3rd Weight Sex Type Anes PTL Martha A1 A5 Name Clin 3 Term 40w 0d 3.799 kg (8 lb 6 oz) M Vag-S pont Living 6 Term 40w 6d 4.026 kg (8 lb 14 oz) F Vag-S pont Living 8 SAB Last Filed Vital Signs Vital Sign Reading Time Taken Comments Blood Pressure 130/70 08/10/2023 9:30 AM CDT Pulse 93 08/10/2023 9:30 AM CDT Temperature 36.7 ??C (98.1 ??F) 08/10/2023 9:30 AM CD T Respiratory Rate 16 08/10/2023 9:30 AM CDT Oxygen Saturation 96% 08/10/2023 9:30 AM CDT Inhaled Oxygen Concentration - - Weight 60.8 kg (134 lb) 08/10/2023 9:30 AM CDT Height 167.6 cm (5' 6 ) 08/10/2023 9:30 AM CDT Body Mass Index 21.63 08/10/2023 9:30 AM CDT Plan of Treatment Health Maintenance Due Date Last Done Comments Breast Cancer Screening-Mammogram 1984 Regular Well Visit/Exam 18-64 05/15/2023 05/15/2022 Covid-19 Vaccine ( season) 2023 06/28/2020, 06/06/2020 Influenza Vaccine (#1) 2023 , 12/27/2021, 01/05/2020, Additional history exists Depression Screening 08/09/2024 08/10/2023, 05/15/2022, 05/15/2022 Cervical Cancer Screening 03/19/2025 03/19/2022, DTaP/Tdap/Td Vaccine (8 - Td or Tdap) 05/12/2029 05/12/2019, 04/11/2008, 10/20/1994, Additional history exists Hepatitis C Screening Completed 11/30/2018 Varicella Vaccines Discontinued 05/05/2023 HPV Vaccines Aged Out No longer eligi ble based on patient's age to complete this topic Pneumococcal vaccine <65 Aged Out No longer eligible based on patient's age to complete this topic Procedures Procedure Name Priority Date/Time Associated Diagnosis Comments PPD TEST Routine 04/06/2024 3:34 PM [employer] Encounter for administration of vaccine HM PAP SMEAR WITH HPV Routine 03/19/2022 HEPATITIS C ANTIBODY Routine 11/30/2018 from Last 3 Months or Most Recently Relevant to Health Maintenance Results * PPD Test (04/06/2024 3:34 PM [employer]) TB Skin Test Negative Negative Induration 0 mm Other 04/06/2024 3:34 PM [employer] Nita Cano MD POINT OF CARE TEST ORDERABLES Final Result * (ABNORMAL) HM PAP SMEAR WITH HPV (03/19/2022) Historical Provider HEALTH MAINTENANCE Final Result * Hepatitis C antibody (11/30/2018) SCRIBED HCV ab non-reacti ve Blood specimen (specimen) Dougie Romero MD LAB MICROBIOLOGY - GENERAL OR DERABLES Final Result from Last 3 Months or Most Recently Relevant to Health Maintenance Insurance [employer] [place] [employer] [place] [employer] Care Teams Packing Machine Inspector Relationship Specialty Start Date End Date [address] PA [address] [place] [address] PCP - General Family Medicine 04/28/22 Dougie Romero MD [address] [place] [address] Referring Physician Obstetrics and Gynecology 02/14/19
--- OUTSIDE RECORDS SUMMARY | 2024-04-25 16:15 | XMS_ITS | Encounter Summary ---
Author Organization [facility] Healthcare Address [address] [place] [address] Care Team Providers Care Overnight Caregiver Name Role Phone Dougie Romero MD Unavailable [address] Primary Care Provider [phone] Reason for Visit * Reason Onset Date Comments Additional Services Or Orders 04/03/2024 Encounter Details Date Type Department Care Team (Late st Contact Info) Description 04/03/[address] [facility] Medical Group Family Medicine [address] [phone] [address] PA [address] [place] [phone] Additional Services Or Orders Social History Tobacco Use Types Packs/Day Years Used Date Smoking Tobacco: Never Smokeless Tobacco: Never AUDIT-C Answer Date Recorded Q1: How often [...] on file Legal Sex Female 1:40 PM UROLOGY NURSE Gender Identity Not on file Sexual Orientation Not on file documented as of this encounter Miscellaneous Notes * Telephone Encounter - Mona Wang LPN - 04/03/2024 11:11 AM CST Pt informed she can come in to get her TB test done as a nurse visit, no appt needed. OGY NURSE * Telephone Encounter - Crispin Shelby - 04/03/2024 11:07 AM CST Additional Services or Orders Type of Service Requested:Injection (treatment or all other vaccines) Reason for Request (e.g. condition/symptom, date of COVID exposure if applicable): TB test is needed for work Details Regarding Additional Services (e.g. type of home health, type of equipment, type of test, etc.): TB test administered and read Where will services be performed? (if outside of the practice, facility name, address, phone/fax offacility): provider's office Additional Comments: patient is requesting to be scheduled this week, leaves for out of town for work on the weekend. Does message need to be routed? Yes-Action Needed OGY NURSE documented in this encounter Plan of Treatment Not on file documented as of this encounter Visit Diagnoses Not on filedocumented in this encounter Care Teams Overnight Caregiver Relationship Specialty Start Date End Date [address] Post PA [address] [place] [address] PCP - General Family Medicine 04/28/22 Dougie Romero MD [address] [place] [address] Referring Physician Obstetrics and Gynecology 02/14/19 documented as of this encounter
--- OUTSIDE RECORDS SUMMARY | 2024-04-25 16:15 | XMS_ITS | Referral Summary ---
Author Organization [facility] Address [address] [place] [address] Care Team Providers Care Subassembler Name Role Phone Dougie Romero MD Unavailable [phone] Primary Care Provider [phone] Encounters Date Type Department Care Team Description 04/06/2024 3:30 PM ACQUISITION MARKETING COORDINATOR Clinical Support [facility] [address] [place] [phone] 04/04/2024 3:30 PM ACQUISITION MARKETING COORDINATOR Clinical Support [address] [phone] Encounter for administration of vaccine (Primary Dx) 04/03/[address] [phone] Ale[address] Post PA Additional Services Or Orders from Last 3 Months Allergies No known active allergies Medications progesterone [...] n/a Pap: 02/2022 - will request records; [facility] DXA: n/a Colon Cancer: n/a Zoster: n/a Pneumococcal: n/a Tdap: 02/2020 Assessment & Plan (05/15/2022 1:02 PM ACQUISITION MARKETING COORDINATOR): Annual Well Visit: 05/15/22 Mammogram: n/a Pap: 02/2022 - will request records; [facility] DXA: n/a Colon Cancer: n/a Zoster: n/a [...] akash cord affecting management of mother 02/27/2019 3 Overview (02/27/2019): S/p counseling on 02/27 Increased [...] Overview (02/20/2019): [] Co-management vs. [] Full [facility] Care; Referring Provider: Dougie Romero [phone] [x] Dating Criteria: LMP 09/05/18 US 11/08/18 [...] [] MOC: [] Method of feeding: [] Global Process Owner: [] PP Depression Discussed: Immunizations Name Administration Dates Next Due DTaP 10/27/1989, 6,1984,04/06,1984 Hep B Vaccine 09/11/1998,11/28/1996,10/25/1996 Influenza, Quadrivalent, Chantell l Culture-based MDCK, Preservative Free, Antibiotic Free, Intramuscular 05/02/2019 Influenza, Quadrivalent, Spl it, Preservative Free, Intramuscular 05/05/2022,01/05/2020 Influenza, Trivalent, IM (MDV) 03/03/2012 Influenza, Unspecified 12/27/2022(Deferr ed: Patient decision),12/27/2021 MMR 01/21/1990,04/17/1985 PPD TEST 04/04/2024,05/05/2023,05/15/2022 Polio, Unspecified 10/06/2013, 0,07/19/1985,05/11,1984,1984 Td, Unspecified 10/20/1994 Tdap 05/12/2019,04/11/2008 Varicella 05/05/2023 Social History Tobacco Use Types Packs/Day Years [...] on file Legal Sex Female 1:40 PM ACQUISITION MARKETING COORDINATOR Gender Identity Not on file Sexual Orientation Not on file Last Filed Vital Signs Vital Sign Reading [...] 08/10/2023 9:30 AM CDT Plan of Treatment Not on file Procedures Procedure Name Priority Date/Time Associated Diagnosis Comments PPD TEST Routine 04/06/2024 3:34 PM ACQUISITION MARKETING COORDINATOR Encounter for administration of vaccine HM PAP SMEAR WITH HPV Routine 03/19/2022 HEPATITIS C ANTIBODY Routine 11/30/2018 from Last 3 Months or Most Recently Relevant to Health Maintenance Results * PPD Test (04/06/2024 3:34 PM ACQUISITION MARKETING COORDINATOR) TB Skin Test Negative Negative Induration 0 mm Other 04/06/2024 3:34 PM ACQUISITION MARKETING COORDINATOR Nita Cano MD POINT OF CARE TEST ORDERABLES Final Result * (ABNORMAL) HM PAP SMEAR WITH HPV (03/19/2022) Historical Provider HEALTH MAINTENANCE Final Result * Hepatitis C antibody (11/30/2018) SCRIBED HCV ab non-reacti ve Blood specimen (specimen) Dougie Romero MD LAB MICROBIOLOGY - GENERAL OR DERABLES Final Result from Last 3 Months or Most Recently Relevant to Health Maintenance Insurance [email or web address] [place] [email or web address] [place] [employer] Care Teams Subassembler Relationship Specialty Start Date End Date Aleida Post PA [address] [place], [place] [id number] PCP - General Family Medicine 04/28/22 Dougie Romero MD [address] [place] [address] Referring Physician Obstetrics and Gynecology 02/14/19
--- OUTSIDE RECORDS SUMMARY | 2024-04-25 16:15 | XMS_ITS | Clinical Summary ---
Author Organization [facility] Address [address] [place] [address]. [place], [place] [id number] [place] [id number] Care Team Providers Care Diving Coach Name Role Phone Angel Hidalgo Primary Care Provider [phone] Allergies No known active allergies Medications No known medications Active Problems No known active problems Family History Medical History Relation Comments FACTOR V Father Relation Status Comments Father Alive Mother Alive Social History Tobacco Use Types Packs/Day Years Used Date Smoking Tobacco: Never Smokeless Tobacco: Never Alcohol Use Standard Drinks/Week Comments Yes 3.3 (1 standard drink = 0.6 oz p ure alcohol) Comments No Sex and Gender Information Value Date Recorded Sex Assigned at Not on file Legal Sex Female 5:32 PM CDT Gender Identity Not on file Sexual Orientation Not on file Last Filed Vital Signs Vital Sign Reading Time Taken Comments Blood Pressure 117/75 12/19/2017 8:44 AM CDT Pulse 80 12/19/2017 8:44 AM CDT Temperature 36.3 ??C (97.4 ??F) 12/19/2017 8:44 AM CD T Respiratory Rate 18 12/19/2017 8:44 AM CDT Oxygen Saturation 98% 12/19/2017 8:44 AM CDT Inhaled Oxygen Concentration - - Weight 59 kg (130 lb) 12/19/2017 8:44 AM CDT Height 167.6 cm (5' 6 ) 12/19/2017 8:44 AM CDT Body Mass Index 20.98 12/19/2017 8:44 AM CDT Plan of Treatment Health Maintenance Due Date Last Done Comments Cervical Cancer Screening Pa p Smear (Age 30 to 64) Every 3 Years 1984 Annual Physical 01/03/1987 Hepatitis C 01/03/2002 DTaP, Tdap and Td Vaccines ( 1 - Tdap) 01/03/2003 Hepatitis B Vaccines (1 of 3 - 19+ 3-dose series) 01/03/2003 Cervical Cancer Screening Dayron cardozo with HPV Testing (Age 30 to 64) Every 5 Years 01/03/2014 Cervical Cancer Screening with HPV 01/03/2014 COVID-19 Vaccine (2023-2 5 season) 2023 Influenza Adult (#1) 2023 Mammogram Screening 2024 HPV Vaccines Aged Out No longer eligi ble based on patient's age to complete this topic Meningococcal B Vaccine Aged Out No l onger eligible based on patient's age to complete this topic Meningococcal Vaccine Aged Out No valentina aileen eligible based on patient's age to complete this topic Pneumococcal Vaccine: Pediat rics (0 to 5 Years) and At-Risk Patients (6 to 64 Years) Aged Out No longer eligible b ased on patient's age to complete this topic RSV Immunizations Under 20 Months Aged Out No longer eligible based on patient's age to complete this topic Insurance Care Teams Diving Coach Relationship Specialty Start Date End Date Angel Hidalgo PA [address] [place] [id number] PCP - General 04/25/16
== END 2024-04-25 16:13 | disposition home or self-care (01) ==
LOC: ANHIMG 16:12
PROVIDERS: Visit Provider Nurse Practitioner
DX: Z12.31 Encounter for screening mammogram for malignant neoplasm of breast (principal); R92.8 Other abnormal and inconclusive findings on diagnostic imaging of breast
CPT/HCPCS: 77063; 77067

== ENCOUNTER 2024-09-14 08:55 | Outpatient (CLI) | payer OTHER, SELFPAY ==
--- NOTE | ~2024-09-14 | MMUS_ITS ---
EXAMINATION: MM diagnostic mack RT w miguel, US breast RT complete HISTORY: Follow-up right breast asymmetry TECHNIQUE: Additional 3-D tomosynthesis images of the right breast were performed and synthetic 2-D i mages were generated. CAD analysis was submitted and interpreted. High resolution complete right trip st ultrasound was performed. COMPARISON: 04/25/2024 BREAST PARENCHYMAL COMPOSITION: Dense: The breasts are heterogeneously dense, which may obscure small masses FINDINGS: MAMMOGRAPHIC FINDINGS: There are no suspicious masses, calcifications or architectural distortion in the right breast to sug gest malignancy. ULTRASOUND: Complete US of all 4 quadrants of the right breast/s and retroareolar region was reviewed. At 9:00, 3 cm from the nipple there is a 4 mm cyst. At 10:00, 4.5 cm from the nipple there is an oval hypoechoi c slightly heterogeneous 4 mm mass with parallel orientation, no internal vascularity and no posterio r features, likely benign. At 11:00, 3 cm from the nipple there is a oval hypoechoic parallel oriente d 5 mm mass without internal vascularity or posterior features. IMPRESSION: 1. Probable benign right breast masses by ultrasound. 2. Recommend 6 month follow-up Limited right breast ultrasound. Reviewed, dictated and finalized at location A. IMPRESSION: 1. Probable benign right breast masses by ultrasound. 2. Recommend 6 month follow-up Limited right breast ultrasound.
== END 2024-09-14 08:56 | disposition home or self-care (01) ==
LOC: MICIMG 08:55
PROVIDERS: PCP Nurse Practitioner; Visit Provider Nurse Practitioner
DX: R92.8 Other abnormal and inconclusive findings on diagnostic imaging of breast (principal)
CPT/HCPCS: 76641; 77061; 77065; G0279